=== PATIENT | male | born 1965 | race African-American/Black ===

== ENCOUNTER 2020-08-10 07:30 | Day surgery (SDC) | payer OTHER ==
[2020-08-07 12:57] VITALS: BMI 28.8
[2020-08-10] MEDS ORDERED: PROPOFOL 20 ML ONE (08:22)
[2020-08-10] MEDS ORDERED: LIDOCAINE HCL/PF 2% SDV 5ML VIAL ONE (08:22)
[2020-08-10] MEDS ORDERED: ceFAZolin SODIUM 1 GM VIAL ONE (08:22)
[2020-08-10] MEDS ORDERED: MIDAZOLAM HCL 2 MG/2 ML SINGLE DOSE VIAL ONE (08:22)
[2020-08-10] MEDS ORDERED: BUPIVACAINE HCL/EPINEPHRINE/PF 30 ML VIAL IJ ONE (08:22)
[2020-08-10] MEDS ORDERED: DEXAMETHASONE SOD PHOSPHATE 4 MG/1 ML VIAL ONE (08:55)
[2020-08-10] MEDS ORDERED: ONDANSETRON 4 MG/2 ML VIAL ONE (08:55)
[2020-08-10] MEDS ORDERED: GLYCOPYRROLATE 0.2 MG/1 ML VIAL ONE (09:08)
[2020-08-10] MEDS ORDERED: BUPIVACAINE HCL/PF 0.25% (2.5MG/ML) 10 ML VIAL IJ ONE (09:15)
[2020-08-10] MEDS ORDERED: IBUPROFEN 800 MG/8 ML IJ IVPB PRN (09:31)
[2020-08-10] MEDS ORDERED: oxyCODONE HCL 5 MG TABLET PO PRN (09:31)
[2020-08-10] MEDS ORDERED: ONDANSETRON 4 MG/2 ML VIAL IVPUSH PRN (09:31)
[2020-08-10] MEDS ORDERED: LACTATED RINGERS SOLUTION 1,000 ML IV SCH (09:45)
[2020-08-10 10:35] VITALS: TEMP 97.8
[2020-08-10 11:03] VITALS: BP 135/87; PULSE 56
== END 2020-08-10 11:03 | disposition home or self-care (01) ==
LOC: FASU 07:30
PROVIDERS: ATTEND Orthopaedic Surgery
PROC: 0LQ30ZZ Repair Right Upper Arm Tendon, Open Approach (ICD-10-PCS; 2020-08-10)
PROC: 0PBF0ZZ Excision of Right Humeral Shaft, Open Approach (ICD-10-PCS; 2020-08-10)
PROC: 0PBF0ZZ Excision of Right Humeral Shaft, Open Approach (ICD-10-PCS; principal; 2020-08-10 08:55)
DX: M77.01 Medial epicondylitis, right elbow (principal)
CPT/HCPCS: 88304-TC; 88311-TC; 94760